=== PATIENT | male | born 1995 | race Caucasian/White ===

== ENCOUNTER 2019-05-11 20:03 | Emergency (ER) | payer BC ==
[~2019-05-11] VITALS: Ht 185.4 cm; Wt 79.4 kg
[2019-05-11 20:27] VITALS: BP 137/76
--- NOTE | 2019-05-11 20:27 | NUR ---
ED Nurse Note: pt ambulated to ed c/o blood in feces and have been experiencing diarrhea x 1 day. per pt he had 30 bowel movements since eating pasta. pt states hes been drinking pedialyte, and taking advil to help with pain and hydration
[2019-05-11] MEDS ORDERED: Omnipaque-300 100ml vial INJ PRN (20:30)
--- NOTE | 2019-05-11 20:47 | NUR ---
ED Nurse Note: xray at bedside
--- NOTE | 2019-05-11 20:51 | NUR ---
ED Nurse Note: xray completed
[2019-05-11 20:58] LABS: HEMATOCRIT 52.3 % (42.0-52.0); MEAN CORPUSCULAR VOLUME 90 FL (80-99); PLATELET COUNT 205 K/UL (150-450); RED BLOOD COUNT 5.79 M/UL (4.70-6.10); WHITE BLOOD COUNT 21.9 K/UL (4.8-10.8)
[2019-05-11 21:08] LABS: INR 1.2 (0.9-1.1)
[2019-05-11 21:10] LABS: ANION GAP 6 mmol/L (5-15); BLOOD UREA NITROGEN 15 mg/dL (7-18); CALCIUM 9.1 MG/DL (8.5-10.1); CARBON DIOXIDE 32 MMOL/L (21-32); CHLORIDE 100 MMOL/L (98-107); CREATININE 1.3 MG/DL (0.55-1.30); POTASSIUM 3.9 MMOL/L (3.5-5.1); SODIUM 138 MMOL/L (136-145)
[2019-05-11 21:16] LABS: ALANINE AMINOTRANSFERASE 25 U/L (12-78); ALBUMIN 3.7 G/DL (3.4-5.0); ALKALINE PHOSPHATASE 72 U/L (46-116); ASPARTATE AMINO TRANSFERASE 17 U/L (15-37); BILIRUBIN,TOTAL 0.8 MG/DL (0.2-1.0)
--- NOTE | 2019-05-11 21:20 | NUR ---
ED Nurse Note: pt friend GRAHAM at bedside
[2019-05-11] MEDS ORDERED: metroNIDAZOLE 500mg tab ORAL ONE (21:30)
[2019-05-11] MEDS ORDERED: Ciprofloxacin 500mg tab ORAL ONE (21:30)
--- NOTE | 2019-05-11 21:30 | NUR ---
ED Nurse Note: pt went to CT
--- NOTE | 2019-05-11 21:39 | NUR ---
ED Nurse Note: pt returned from CT
--- NOTE | 2019-05-11 21:45 | Emergency Room Report ---
History of Present Illness General Chief Complaint: Diarrhea Source: Patient Present Illness HPI 24-year-old male with no significant past medical history here for complaining of 1 day of diffuse abdominal pain and multiple bouts of bloody diarrhea. Patient, as of nausea and few bouts of emesis however nonbloody emesis. Reports that he has been having watery diarrhea with fresh blood profusely for the past few hours however his symptoms started last night after eating pasta. Denies consuming any hot sauce, or alcohol. Denies recent travel and antibiotic use. Patient is sexually active with other men and denies past history of sexually transmitted diseases. Gives consent to be tested for HIV. Also reports that has been taking multiple Advil today for abdominal pain. Denies past history of diverticulosis or diverticulitis. Denies history of surgery and abdomen. Denies urinary symptoms. Reports that he has had hemorrhoids in the past however the amount of bleeding that he had in his diarrhea is not comparable to his bleeding in the past due to hemorrhoids. Allergies: Coded Allergies: PENICILLINS (Verified Allergy, Unknown, 05/11/19) Patient History Past Medical History: see triage record Past Surgical History: unable to obtain Pertinent Family History: none Immunizations: UTD Reviewed Nursing Documentation: PMH: Agreed; PSxH: Agreed Nursing Documentation-PMH Past Medical History: No Stated History History Of Psychiatric Problem: Yes - depression Review of Systems All Other Systems: negative except mentioned in HPI Physical Exam Vital Signs Date Time Temp Pulse Resp B/P (MAP) Pulse Ox O2 Delivery O2 Flow Rate FiO2 05/11/19 20:13 98.4 95 16 137/76 (96) 98 Room Air Sp02 EP Interpretation: reviewed, normal General Appearance: no apparent distress, alert, GCS 15, non-toxic Head: normocephalic, atraumatic Eyes: bilateral eye normal inspection, bilateral eye PERRL ENT: hearing grossly normal, normal pharynx, no angioedema, normal voice Neck: full range of motion, supple, supple/symm/no masses Respiratory: chest non-tender, lungs clear, normal breath sounds, no rhonchi, no respiratory distress, no wheezing, speaking full sentences Cardiovascular #1: regular rate, rhythm, no edema, no murmur, normal capillary refill Gastrointestinal: normal bowel sounds, non tender, soft, no mass, no organomegaly, no peritonitis, no bruit, non-distended, no guarding, no hernia, no pulsatile mass, no rebound Rectal: deferred Genitourinary: no CVA tenderness Musculoskeletal: back normal, gait/station normal, normal range of motion, non- tender, no calf tenderness Neurologic: alert, oriented x3, responsive, motor strength/tone normal, sensory intact, speech normal Psychiatric: judgement/insight normal, memory normal, mood/affect normal, no suicidal/homicidal ideation Skin: no rash Lymphatic: no adenopathy Medical Decision Making PA Attestation All my diagnosis and treatment plans were reviewed ad discussed with my supervising physician Dr. Santana Diagnostic Impression: Primary Impression: Infectious colitis ER Course 24-year-old male with no significant past medical history here for complaining of 1 day of diffuse abdominal pain and multiple bouts of bloody diarrhea. Patient, as of nausea and few bouts of emesis however nonbloody emesis. Reports that he has been having watery diarrhea with fresh blood profusely for the past few hours however his symptoms started last night after eating pasta. Denies consuming any hot sauce, or alcohol. Denies recent travel and antibiotic use. Patient is sexually active with other men and denies past history of sexually transmitted diseases. Gives consent to be tested for HIV. Also reports that has been taking multiple Advil today for abdominal pain. Denies past history of diverticulosis or diverticulitis. Denies history of surgery and abdomen. Denies urinary symptoms. Reports that he has had hemorrhoids in the past however the amount of bleeding that he had in his diarrhea is not comparable to his bleeding in the past due to hemorrhoids. Ddx considered but are not limited to: appendicitis, cholecystis, gastritis, gastroenteritis, UTI, pyelonephritis, SBO, diverticulitis, influenza with GI manifestation, hemorrhoids Vital signs: are WNL, pt. is afebrile H&PE are most consistent with: Colitis most likely infectious ORDERS: abdominal CT, abdominal pain set, EKG, Cipro, Flagyl, Zofran ED INTERVENTIONS: NS bolus, Zofran, Pepcid, Tylenol, Cipro, Flagyl DISCHARGE: At this time pt. is stable for d/c to home. Will provide printed patient care instructions, and any necessary prescriptions. Care plan and follow up instructions have been discussed with the patient prior to discharge. Patient to follow-up with primary care provider in 24 hours. If worsening symptoms return to emergency room. Take medication as directed and a referral to felt [facility] is suggested. Avoid drinking alcohol, spicy foods, acidic food. Keep a BRAT diet. Increase oral hydration specially electrolyte water EKG Diagnostic Results Rate: normal Rhythm: NSR ST Segments: no acute changes Other Impression No acute ST changes Chest X-Ray Diagnostic Results Chest X-Ray Diagnostic Results : Chest X-Ray Ordered: Yes # of Views/Limited/Complete: 1 View Indication: Other EP Interpretation: Yes PA Xray: Interpretation reviewed, by supervising MD, and agrees with findings. Interpretation: no consolidation, no effusion, no pneumothorax Impression: No acute disease Electronically Signed by: Regan Peoples PA-C CT/MRI/US Diagnostic Results CT/MRI/US Diagnostic Results : Imaging Test Ordered: CT abdomen pelvis with contrast Impression CT ABDOMEN & PELVIS With Contrast: Mucosal thickening throughout the colon consistent with nonspecific pancolitis. No abscess, obstruction, or perforation. Normal appendix. The liver, gallbladder, pancreas, spleen, adrenal glands, and kidneys are unremarkable. Last Vital Signs Date Time Temp Pulse Resp B/P (MAP) Pulse Ox O2 Delivery O2 Flow Rate FiO2 05/11/19 20:27 98.4 95 16 137/76 98 Room Air Disposition: HOME, SELF-CARE Condition: Stable Patient Instructions: Colitis Additional Instructions: Patient to follow-up with primary care provider in 24 hours. If worsening symptoms return to emergency room. Take medication as directed and a referral to [facility] is suggested. Avoid drinking alcohol, spicy foods, acidic food. Keep a BRAT diet. Increase oral hydration specially electrolyte water Regan Ramos May 11, 2019 21:45
--- NOTE | 2019-05-11 21:45 | NUR ---
ED Nurse Note: lactic and blood culture specimen sent to lab
--- NOTE | 2019-05-11 21:50 | NUR ---
ED Nurse Note: urine specimen sent lab
[2019-05-11 21:58] LABS: APPEARANCE,URINE CLEAR; BILIRUBIN, URINE NEGATIVE (NEGATIVE); COLOR,URINE PALE YELLOW; GLUCOSE, URINE (UA) 1+ (NEGATIVE); KETONES,URINE NEGATIVE (NEGATIVE); LEUKOCYTE ESTERASE ,URINE NEGATIVE (NEGATIVE); NITRITE,URINE NEGATIVE (NEGATIVE); PH,URINE 6.5 (4.5-8.0); PROTEIN,URINE 2+ (NEGATIVE); UROBILINOGEN,URINE NORMAL MG/DL (0.0-1.0)
--- NOTE | 2019-05-11 22:09 | Diagnostic Imaging Report ---
Clinical Indication: Blood in the feces, diarrhea x1 day Technique: No oral contrast utilized, per emergency room physician request IV administration nonionic contrast. Venous phase spiral acquisition obtained through the abdomen and pelvis. Multiplanar reconstructions were generated. Total dose length product 652 mGycm. CTDIvol(s) 13 mGy. Dose reduction achieved using automated exposure control Comparison: none Findings: Lack of enteric contrast limits assessment of the GI tract. There is wall thickening of the distal descending and sigmoid colon, more questionably of the ascending colon. The appendix is normal. A few small bowel loops are somewhat fluid filled but this is not particularly striking. The distal esophagus, stomach, duodenum are unremarkable. No small bowel distention. No free or loculated intraperitoneal gas or fluid is evident. The liver, gallbladder, bile ducts, pancreas are unremarkable. The spleen is mildly enlarged, measuring 14 cm long axis dimension. The adrenals and kidneys are unremarkable. No retroperitoneal or mesenteric mass or adenopathy. No pelvic mass or adenopathy. The included lung bases are clear. The bones demonstrate mild lumbar scoliotic deformity. Impression: Wall thickening of the descending and sigmoid colon, possibly ascending colon, consistent with colitis, nonspecific as regards etiology Borderline splenomegaly Scoliosis This essentially agrees with the preliminary interpretation provided overnight by [facility], with minor variation. The CT scanner at [facility] is accredited by the [employer] and the scans are performed using protocols designed to limit radiation exposure to as low as reasonably achievable to attain images of sufficient resolution adequate for diagnostic evaluation.
[2019-05-11] MEDS ORDERED: CIPRO500 MG PO (22:23)
[2019-05-11] MEDS ORDERED: METRONIDAZOLE500 MG ORAL (22:23)
[2019-05-11] MEDS ORDERED: ZOFRAN4 M1 ORAL (22:23)
--- NOTE | 2019-05-11 22:40 | NUR ---
ED Nurse Note: pt dc per ermd order. pt is aox4, on room air, and states decreaed pain. 07/24. pt is accompanied by friend tracy. pt iv site and id band removed. pt verbalized understanding of dc and prescription instructions. pt took all belongings.
[2019-05-11 22:43] VITALS: BP 124/77
--- NOTE | 2019-05-12 15:45 | Diagnostic Imaging Report ---
Indication: Chest pain Technique: One view of the chest Comparison: none Findings: Lungs and pleural spaces are clear. Heart size is normal. Impression: No acute process
--- NOTE | 2019-05-12 16:45 | Cardiology Report ---
APPROVED REPORT EKG Measurement Heart [id number] Normal sinus rhythm Right atrial enlargement Borderline ECG
== END 2019-05-11 22:40 | disposition home or self-care (01) ==
LOC: EMR 20:53
DX: A09 Infectious gastroenteritis and colitis, unspecified (principal); F32.9 Major depressive disorder, single episode, unspecified; Z88.0 Allergy status to penicillin; R07.9 Chest pain, unspecified
CPT/HCPCS: 36415; 71045; 74177; 80053; 80307; 81003; 83605; 83690; 84484; 85007; 85025; 85610; 85730; 86703; 86850; 86900; 86901; 87040; 93005; 96361; 96374; 96375; 99284; J2405; Q9967; S0028; J7030